=== PATIENT | male | born 1990 | race Two or more races ===

== ENCOUNTER 2017-02-07 15:22 | Inpatient (IN) | payer BC, OTHER ==
[~2017-02-07] VITALS: Ht 172.7 cm; Wt 96.5 kg
[2017-02-07] MEDS ORDERED: SODIUM CHLORIDE 0.9% 1,000 ML IV ONE (16:07)
[2017-02-07 16:35] LABS: Mean Platelet Volume 8.7 fL (6.9-10.8)
[2017-02-07 16:40] LABS: Mean Corpuscular Hemoglobin 32.5 pg (28.0-32.0); Mean Corpuscular Volume 84.7 fL (80.0-100.0); Platelet Count (auto) 250 10^3/uL (140-450)
[2017-02-07 16:49] LABS: Mean Corpuscular Hgb Conc. 38.4 g/dL (32.0-36.0)
[2017-02-07 16:51] LABS: INR 1.1 (0.9-1.15); Partial Thromboplastin Time 20.9 sec (22.64-33.71)
[2017-02-07 16:56] LABS: Hemoglobin 3.1 g/dL (13.5-17.5)
[2017-02-07 16:57] LABS: Albumin 4.1 g/dL (3.4-5.0); Alkaline Phosphatase 91 U/L (45-117); Anion Gap 10 (5-15); Aspartate Aminotransferase 11 U/L (15-37); BUN/Creatinine Ratio 22.1; Bilirubin, Total 0.5 mg/dL (0.2-1.0); Blood Urea Nitrogen 19 mg/dL (7-18); Calcium 8.5 mg/dL (8.5-10.1); Carbon Dioxide 23 mmol/L (21-32); Chloride 103 mmol/L (98-107); GFR African American 138 mL/min; GFR Non-African American 114 mL/min; Glucose 91 mg/dL (74-106); Potassium 3.8 mmol/L (3.5-5.1); Sodium 136 mmol/L (136-145); Total Protein 7.2 g/dL (6.4-8.2)
[2017-02-07 17:03] LABS: White Blood Cell 1.5 10^3/uL (4.4-10.8)
[2017-02-07 17:04] LABS: Metamyelocytes % 0; Myelocytes % 0; Promyelocytes % 0
[2017-02-07] MEDS ORDERED: IOHEXOL 300 MG/ML 100ML BOTTLE IJ ONE (17:23)
[2017-02-07 18:44] LABS: Reticulocyte Count 0.2 % (0.5-1.5)
[2017-02-07 18:45] LABS: Platelet Estimate Adequate; Reactive Lymphocytes 2
[2017-02-07 18:46] LABS: Hypochromia Moderate; Microcytosis Moderate
[2017-02-07] MEDS ORDERED: HYDROcodone-ACET 5/325MG TAB PO PRN (19:00)
[2017-02-07] MEDS ORDERED: MORPHINE SULF INJ 2 MG/ML SYRINGE 1ML IV PRN ×2 (19:00)
[2017-02-07] MEDS ORDERED: TEMAZEPAM 15 MG CAP PO PRN (19:00)
[2017-02-07] MEDS ORDERED: ONDANSETRON HCL 4 MG/2 ML VIAL IV PRN (19:00)
[2017-02-07] MEDS ORDERED: NITROGLYCERIN 0.4 MG SL TAB SL PRN (19:00)
[2017-02-07] MEDS ORDERED: DOCUSATE SOD 100 MG CAP PO PRN (19:00)
[2017-02-07] MEDS ORDERED: ACETAMINOPHEN 325 MG TAB PO PRN (19:00)
[2017-02-07] MEDS: SODIUM CHLORIDE 0.9% 1,000 ML IV SCH (19:13)
[2017-02-07 19:41] LABS: Wright Stain Ready for Review
[2017-02-07 21:00] VITALS: BP 118/47
[2017-02-07] MEDS: FAMOTIDINE 20 MG TAB PO SCH (21:27)
[2017-02-07 21:37] VITALS: BP 118/47
[2017-02-07 21:55] VITALS: BP 113/43
[2017-02-07 22:10] VITALS: BP 112/52
[2017-02-07 22:40] VITALS: BP 118/47
[2017-02-08] VITALS (10 sets, daily range): BP systolic 102–122; BP diastolic 51–65
[2017-02-08 02:22] LABS: Urine RBC None Seen /hpf (0 - 3)
[2017-02-08 02:30] LABS: Urine Bilirubin Negative (Negative); Urine Blood Negative /uL (Negative); Urine Color Yellow (Yellow); Urine Glucose Normal (Normal); Urine Ketone Negative (Negative); Urine Nitrite Negative (Negative); Urine pH 6.5 (5.0-8.0)
[2017-02-08 06:58] LABS: Hematocrit 12.3 % (41.0-53.0); Mean Corpuscular Hemoglobin 30.8 pg (28.0-32.0); Mean Corpuscular Hgb Conc. 36.2 g/dL (32.0-36.0); Mean Corpuscular Volume 85.1 fL (80.0-100.0); Platelet Count (auto) 241 10^3/uL (140-450); Red Cell Distribution Width 13.9 % (11.8-14.3)
[2017-02-08 07:12] LABS: Albumin 3.7 g/dL (3.4-5.0); BUN/Creatinine Ratio 20.2; Calcium 8.2 mg/dL (8.5-10.1); Potassium 3.9 mmol/L (3.5-5.1)
[2017-02-08 07:15] LABS: Bilirubin, Total 0.6 mg/dL (0.2-1.0); Total Protein 6.6 g/dL (6.4-8.2)
[2017-02-08 07:21] LABS: Hemoglobin 4.4 g/dL (13.5-17.5); White Blood Cell 1.8 10^3/uL (4.4-10.8)
[2017-02-08 07:22] LABS: Metamyelocytes % 0; Myelocytes % 0; Promyelocytes % 0; Reactive Lymphocytes 0
[2017-02-08 07:46] LABS: Ovalocytes FEW; Platelet Estimate Adequate
[2017-02-08] MEDS ORDERED: HYDROmorphone HCL 2 MG/ML VL IV ONE (08:00)
[2017-02-08 08:37] LABS: Albumin 3.8 g/dL (3.4-5.0); Bilirubin, Direct 0.1 mg/dL (0-0.2); Bilirubin, Total 0.6 mg/dL (0.2-1.0); Total Protein 6.6 g/dL (6.4-8.2)
[2017-02-08] MEDS: FAMOTIDINE 20 MG TAB PO SCH ×2 (09:44→20:44)
[2017-02-08] MEDS: FOLIC ACID 1 MG TAB PO SCH (09:44)
[2017-02-08] MEDS: MULTIPLE VITAMIN TAB PO SCH (09:44)
[2017-02-08] MEDS: methylPREDNISolone SOD SUCC 125 MG/2 ML VL IV SCH ×2 (09:45→20:44)
[2017-02-08] MEDS: SODIUM CHLORIDE 0.9% 1,000 ML IV SCH (16:21)
[2017-02-09] VITALS (11 sets, daily range): BP systolic 104–150; BP diastolic 51–83
[2017-02-09] MEDS: SODIUM CHLORIDE 0.9% 1,000 ML IV SCH ×2 (05:34→20:59)
[2017-02-09] MEDS: methylPREDNISolone SOD SUCC 125 MG/2 ML VL IV SCH ×3 (05:34→22:22)
[2017-02-09 06:18] LABS: Basophils # (auto) 0 uL; Basophils % (auto) 0.1 % (0.0-2.0); Eosinophils # (auto) 0 uL; Lymphocytes # (auto) 0.6 uL; Monocytes # (auto) 0 uL
[2017-02-09 06:26] LABS: Eosinophils % (auto) 0.1 % (0.0-7.0); Hematocrit 12.5 % (41.0-53.0); Lymphocytes % (auto) 44.3 % (10.0-50.0); Mean Corpuscular Hemoglobin 30.8 pg (28.0-32.0); Mean Corpuscular Hgb Conc. 35.8 g/dL (32.0-36.0); Mean Platelet Volume 9.4 fL (6.9-10.8); Monocytes % (auto) 2.5 % (0.0-12.0); Neutrophils # (auto) 0.7 uL; Nucleated Red Blood Cells % 0.1 %; Platelet Count (auto) 220 10^3/uL (140-450); Red Cell Distribution Width 14.1 % (11.8-14.3)
[2017-02-09 06:50] LABS: Albumin 3.7 g/dL (3.4-5.0); Calcium 8.5 mg/dL (8.5-10.1)
[2017-02-09 06:53] LABS: Bilirubin, Total 0.3 mg/dL (0.2-1.0); Total Protein 6.9 g/dL (6.4-8.2)
[2017-02-09 06:57] LABS: White Blood Cell 1.3 10^3/uL (4.4-10.8)
[2017-02-09 06:58] LABS: Hemoglobin 4.5 g/dL (13.5-17.5)
[2017-02-09] MEDS: FAMOTIDINE 20 MG TAB PO SCH ×2 (09:33→22:22)
[2017-02-09] MEDS: FOLIC ACID 1 MG TAB PO SCH (09:33)
[2017-02-09] MEDS: MULTIPLE VITAMIN TAB PO SCH (09:33)
[2017-02-10 05:00] VITALS: BP 117/60
[2017-02-10 05:47] LABS: Basophils # (auto) 0 uL; Eosinophils # (auto) 0 uL; Lymphocytes # (auto) 0.5 uL; Mean Corpuscular Volume 85.7 fL (80.0-100.0); Mean Platelet Volume 9.3 fL (6.9-10.8); Monocytes # (auto) 0 uL
[2017-02-10 05:51] LABS: Hematocrit 13.5 % (41.0-53.0); Lymphocytes % (auto) 30.3 % (10.0-50.0); Mean Corpuscular Hemoglobin 30.9 pg (28.0-32.0); Mean Corpuscular Hgb Conc. 36.1 g/dL (32.0-36.0); Neutrophils # (auto) 1.1 uL; Neutrophils % (auto) 67.7 % (37.0-80.0); Nucleated Red Blood Cells % 0.2 %; Platelet Count (auto) 182 10^3/uL (140-450); Red Cell Distribution Width 13.9 % (11.8-14.3)
[2017-02-10] MEDS: methylPREDNISolone SOD SUCC 125 MG/2 ML VL IV SCH ×3 (05:56→21:34)
[2017-02-10 06:00] LABS: White Blood Cell 1.7 10^3/uL (4.4-10.8)
[2017-02-10 06:01] LABS: Hemoglobin 4.9 g/dL (13.5-17.5)
[2017-02-10 09:00] VITALS: BP 112/51
[2017-02-10] MEDS: FOLIC ACID 1 MG TAB PO SCH (09:40)
[2017-02-10] MEDS: MULTIPLE VITAMIN TAB PO SCH (09:40)
[2017-02-10] MEDS: FAMOTIDINE 20 MG TAB PO SCH ×2 (09:41→21:34)
[2017-02-10 13:00] VITALS: BP 117/58
[2017-02-10] MEDS: SODIUM CHLORIDE 0.9% 1,000 ML IV SCH (16:02)
[2017-02-10 17:00] VITALS: BP 114/51
[2017-02-10 22:00] VITALS: BP 119/52
[2017-02-11 05:00] VITALS: BP 116/58
[2017-02-11] MEDS: methylPREDNISolone SOD SUCC 125 MG/2 ML VL IV SCH ×3 (05:30→21:23)
[2017-02-11] MEDS: SODIUM CHLORIDE 0.9% 1,000 ML IV SCH ×2 (05:31→23:12)
[2017-02-11 09:00] VITALS: BP 120/58
[2017-02-11] MEDS: FOLIC ACID 1 MG TAB PO SCH (09:51)
[2017-02-11] MEDS: MULTIPLE VITAMIN TAB PO SCH (09:51)
[2017-02-11] MEDS: FAMOTIDINE 20 MG TAB PO SCH ×2 (09:51→21:23)
[2017-02-11 13:00] VITALS: BP 117/57
[2017-02-11 17:00] VITALS: BP 109/67
[2017-02-11 19:29] LABS: Basophils # (auto) 0 uL; Eosinophils # (auto) 0 uL; Lymphocytes # (auto) 0.5 uL; Monocytes # (auto) 0 uL
[2017-02-11 19:31] LABS: Basophils % (auto) 0.1 % (0.0-2.0); Hematocrit 14.4 % (41.0-53.0); Lymphocytes % (auto) 29.1 % (10.0-50.0); Mean Corpuscular Hemoglobin 30.4 pg (28.0-32.0); Mean Corpuscular Hgb Conc. 35.4 g/dL (32.0-36.0); Mean Platelet Volume 9.7 fL (6.9-10.8); Monocytes % (auto) 0.6 % (0.0-12.0); Neutrophils # (auto) 1.1 uL; Neutrophils % (auto) 70.2 % (37.0-80.0); Platelet Count (auto) 184 10^3/uL (140-450); Red Cell Distribution Width 13.6 % (11.8-14.3)
[2017-02-11 19:37] LABS: Hemoglobin 5.1 g/dL (13.5-17.5); White Blood Cell 1.6 10^3/uL (4.4-10.8)
[2017-02-11 20:50] LABS: Anisocytosis Slight; Ovalocytes FEW; Platelet Estimate Adequate
[2017-02-11 22:00] VITALS: BP 115/55
[2017-02-12] VITALS (7 sets, daily range): BP systolic 111–127; BP diastolic 51–65
[2017-02-12] MEDS: methylPREDNISolone SOD SUCC 125 MG/2 ML VL IV SCH ×3 (05:22→21:45)
[2017-02-12 05:48] LABS: Basophils # (auto) 0 uL; Eosinophils # (auto) 0 uL; Lymphocytes # (auto) 0.6 uL
[2017-02-12 05:51] LABS: Basophils % (auto) 0.1 % (0.0-2.0); Hematocrit 14.5 % (41.0-53.0); Lymphocytes % (auto) 35.5 % (10.0-50.0); Mean Corpuscular Hemoglobin 30.3 pg (28.0-32.0); Mean Corpuscular Hgb Conc. 35.6 g/dL (32.0-36.0); Mean Corpuscular Volume 85.2 fL (80.0-100.0); Mean Platelet Volume 9.8 fL (6.9-10.8); Monocytes # (auto) 0 uL; Monocytes % (auto) 2.4 % (0.0-12.0); Neutrophils # (auto) 1.1 uL; Nucleated Red Blood Cells % 0.3 %; Platelet Count (auto) 179 10^3/uL (140-450); Red Cell Distribution Width 13.5 % (11.8-14.3)
[2017-02-12 06:01] LABS: White Blood Cell 1.8 10^3/uL (4.4-10.8)
[2017-02-12 06:02] LABS: Hemoglobin 5.2 g/dL (13.5-17.5)
[2017-02-12] MEDS: MULTIPLE VITAMIN TAB PO SCH (10:23)
[2017-02-12] MEDS: FOLIC ACID 1 MG TAB PO SCH (10:23)
[2017-02-12] MEDS: FAMOTIDINE 20 MG TAB PO SCH ×2 (10:23→21:46)
[2017-02-12] MEDS: SODIUM CHLORIDE 0.9% 1,000 ML IV SCH (15:54)
[2017-02-13] VITALS (16 sets, daily range): BP systolic 99–130; BP diastolic 43–63
[2017-02-13] MEDS: methylPREDNISolone SOD SUCC 125 MG/2 ML VL IV SCH ×3 (05:35→21:39)
[2017-02-13 05:36] LABS: Basophils # (auto) 0 uL; Basophils % (auto) 0.1 % (0.0-2.0); Eosinophils # (auto) 0 uL; Lymphocytes # (auto) 0.4 uL; Neutrophils % (auto) 69.5 % (37.0-80.0)
[2017-02-13 05:39] LABS: Hematocrit 15.9 % (41.0-53.0); Lymphocytes % (auto) 27.8 % (10.0-50.0); Mean Corpuscular Hemoglobin 30.2 pg (28.0-32.0); Mean Corpuscular Hgb Conc. 35.5 g/dL (32.0-36.0); Mean Corpuscular Volume 85.1 fL (80.0-100.0); Mean Platelet Volume 9.8 fL (6.9-10.8); Monocytes # (auto) 0 uL; Monocytes % (auto) 2.6 % (0.0-12.0); Neutrophils # (auto) 0.9 uL; Platelet Count (auto) 154 10^3/uL (140-450)
[2017-02-13 05:44] LABS: Hemoglobin 5.6 g/dL (13.5-17.5); White Blood Cell 1.4 10^3/uL (4.4-10.8)
[2017-02-13] MEDS: SODIUM CHLORIDE 0.9% 1,000 ML IV SCH (07:39)
[2017-02-13] MEDS: FOLIC ACID 1 MG TAB PO SCH (09:33)
[2017-02-13] MEDS: FAMOTIDINE 20 MG TAB PO SCH ×2 (09:34→21:39)
[2017-02-13] MEDS: MULTIPLE VITAMIN TAB PO SCH (09:35)
[2017-02-14] MEDS: SODIUM CHLORIDE 0.9% 1,000 ML IV SCH ×2 (00:47→17:01)
[2017-02-14 04:46] VITALS: BP 108/58
[2017-02-14] MEDS: methylPREDNISolone SOD SUCC 125 MG/2 ML VL IV SCH ×3 (05:37→21:45)
[2017-02-14 06:07] LABS: Basophils # (auto) 0 uL; Eosinophils # (auto) 0 uL; Hematocrit 18.7 % (41.0-53.0); Lymphocytes # (auto) 0.6 uL; Monocytes # (auto) 0.1 uL; Neutrophils # (auto) 1.3 uL; Neutrophils % (auto) 65.8 % (37.0-80.0); Platelet Count (auto) 158 10^3/uL (140-450)
[2017-02-14 06:10] LABS: Basophils % (auto) 0.2 % (0.0-2.0); Lymphocytes % (auto) 30.8 % (10.0-50.0); Mean Corpuscular Hemoglobin 30.3 pg (28.0-32.0); Mean Corpuscular Hgb Conc. 35.9 g/dL (32.0-36.0); Mean Corpuscular Volume 84.3 fL (80.0-100.0); Mean Platelet Volume 10.1 fL (6.9-10.8); Monocytes % (auto) 3.2 % (0.0-12.0); Nucleated Red Blood Cells % 0.4 %; Red Cell Distribution Width 13.1 % (11.8-14.3)
[2017-02-14 06:15] LABS: White Blood Cell 1.9 10^3/uL (4.4-10.8)
[2017-02-14 06:16] LABS: Hemoglobin 6.7 g/dL (13.5-17.5)
[2017-02-14 09:00] VITALS: BP 119/65
[2017-02-14] MEDS: FAMOTIDINE 20 MG TAB PO SCH ×2 (09:13→21:45)
[2017-02-14] MEDS: MULTIPLE VITAMIN TAB PO SCH (09:13)
[2017-02-14] MEDS: FOLIC ACID 1 MG TAB PO SCH (09:13)
[2017-02-14 13:00] VITALS: BP 122/60
[2017-02-14 17:00] VITALS: BP 128/74
[2017-02-14 22:00] VITALS: BP 112/62
[2017-02-15 05:48] LABS: Basophils # (auto) 0 uL; Eosinophils # (auto) 0 uL; Hematocrit 19.7 % (41.0-53.0); Mean Platelet Volume 9.8 fL (6.9-10.8); Monocytes # (auto) 0.1 uL
[2017-02-15] MEDS: methylPREDNISolone SOD SUCC 125 MG/2 ML VL IV SCH ×3 (05:48→23:03)
[2017-02-15 05:51] LABS: Basophils % (auto) 0.2 % (0.0-2.0); Lymphocytes # (auto) 0.7 uL; Mean Corpuscular Hgb Conc. 35.3 g/dL (32.0-36.0); Mean Corpuscular Volume 84.9 fL (80.0-100.0); Monocytes % (auto) 4.1 % (0.0-12.0); Neutrophils # (auto) 1.2 uL; Neutrophils % (auto) 62.7 % (37.0-80.0); Nucleated Red Blood Cells % 0.6 %; Platelet Count (auto) 173 10^3/uL (140-450); Red Cell Distribution Width 13.2 % (11.8-14.3)
[2017-02-15 06:00] VITALS: BP 110/53
[2017-02-15] MEDS: SODIUM CHLORIDE 0.9% 1,000 ML IV SCH (07:54)
[2017-02-15 09:00] VITALS: BP 116/59
[2017-02-15] MEDS: MULTIPLE VITAMIN TAB PO SCH (10:47)
[2017-02-15] MEDS: FOLIC ACID 1 MG TAB PO SCH (10:47)
[2017-02-15] MEDS: FAMOTIDINE 20 MG TAB PO SCH ×2 (10:47→23:03)
[2017-02-15 11:27] LABS: Burr Cells FEW; Ovalocytes FEW; Platelet Estimate Adequate; Polychromasia Slight
[2017-02-15 13:06] VITALS: BP 117/71
[2017-02-15 17:00] VITALS: BP 115/59
[2017-02-15 22:00] VITALS: BP 119/61
[2017-02-16] MEDS: SODIUM CHLORIDE 0.9% 1,000 ML IV SCH ×2 (02:47→19:27)
[2017-02-16 05:00] VITALS: BP 105/48
[2017-02-16 09:00] VITALS: BP 120/53
[2017-02-16] MEDS: FAMOTIDINE 20 MG TAB PO SCH ×2 (09:56→22:43)
[2017-02-16] MEDS: MULTIPLE VITAMIN TAB PO SCH (09:56)
[2017-02-16] MEDS: methylPREDNISolone SOD SUCC 125 MG/2 ML VL IV SCH ×2 (09:56→22:43)
[2017-02-16] MEDS: FOLIC ACID 1 MG TAB PO SCH (09:56)
[2017-02-16 13:00] VITALS: BP 111/59
[2017-02-16 17:10] VITALS: BP 94/57
[2017-02-16 22:00] VITALS: BP 102/56
[2017-02-17 05:00] VITALS: BP 99/40
[2017-02-17 08:25] LABS: Eosinophils # (auto) 0 uL; Monocytes # (auto) 0.1 uL; Neutrophils # (auto) 1.7 uL; Nucleated Red Blood Cells % 2.8 %; White Blood Cell 2.7 10^3/uL (4.4-10.8)
[2017-02-17 08:26] LABS: Basophils # (auto) 0.1 uL; Basophils % (auto) 3.1 % (0.0-2.0); Eosinophils % (auto) 0.1 % (0.0-7.0); Hematocrit 23.2 % (41.0-53.0); Lymphocytes # (auto) 0.8 uL; Lymphocytes % (auto) 29.4 % (10.0-50.0); Mean Corpuscular Hgb Conc. 34.6 g/dL (32.0-36.0); Mean Corpuscular Volume 86.7 fL (80.0-100.0); Mean Platelet Volume 8.9 fL (6.9-10.8); Monocytes % (auto) 3.3 % (0.0-12.0); Neutrophils % (auto) 64.1 % (37.0-80.0); Platelet Count (auto) 180 10^3/uL (140-450); Red Cell Distribution Width 13.2 % (11.8-14.3)
[2017-02-17 08:43] LABS: BUN/Creatinine Ratio 26.5; Bilirubin, Total 0.5 mg/dL (0.2-1.0); Potassium 4.2 mmol/L (3.5-5.1)
[2017-02-17 09:00] VITALS: BP 115/57
[2017-02-17] MEDS: methylPREDNISolone SOD SUCC 125 MG/2 ML VL IV SCH (09:27)
[2017-02-17] MEDS: FAMOTIDINE 20 MG TAB PO SCH (09:28)
[2017-02-17] MEDS: FOLIC ACID 1 MG TAB PO SCH (09:28)
[2017-02-17] MEDS: MULTIPLE VITAMIN TAB PO SCH (09:28)
[2017-02-17] MEDS: SODIUM CHLORIDE 0.9% 1,000 ML IV SCH (12:02)
[2017-02-17] MEDS ORDERED: MORPHINE SULFATE 4 MG/ML SYRG IV PRN (12:15)
[2017-02-17 13:00] VITALS: BP 117/54
[2017-02-17 16:33] VITALS: BP 117/54
[2017-02-17 16:34] VITALS: BP 119/61
== END 2017-02-17 21:20 | disposition short-term general hospital (02) | DRG 835 ==
LOC: ER 15:30 → TELE 15:31 → TELE-WESTW 21:05 → WEST WING 02-10 09:13
PROVIDERS: ADMIT Internal Medicine; ATTEND Internal Medicine Pulmonary Disease
PROC: 30233N1 Transfusion of Nonautologous Red Blood Cells into Peripheral Vein, Percutaneous Approach (ICD-10-PCS; principal; 2017-02-07)
PROC: 07DR3ZX Extraction of Iliac Bone Marrow, Percutaneous Approach, Diagnostic (ICD-10-PCS; 2017-02-07)
DX: C91.00 Acute lymphoblastic leukemia not having achieved remission (principal); C85.95 Non-Hodgkin lymphoma, unspecified, lymph nodes of inguinal region and lower limb; D59.1 Other autoimmune hemolytic anemias; E61.1 Iron deficiency; R59.0 Localized enlarged lymph nodes; Z90.89 Acquired absence of other organs
CPT/HCPCS: 36415; 71010; 74177; 80053; 80076; 81001; 82270; 82607; 82728; 82784; 82962; 83010; 83540; 83550; 83615; 84484; 84550; 85007; 85025; 85027; 85045; 85610; 85730; 86334; 86703; 86850; 86880; 86900; 86901; 86920; 88342; 88360; 93005; 96361; 96374; 96375; J2405

== ENCOUNTER 2017-06-11 00:10 | Emergency (ER) | payer BC ==
[~2017-06-11] VITALS: Ht 172.7 cm; Wt 88.5 kg
[2017-06-11 00:24] VITALS: BP 121/80
== END 2017-06-11 03:35 | disposition left against medical advice (07) ==
LOC: ER 00:11
DX: M79.601 Pain in right arm (principal); Z53.21 Procedure and treatment not carried out due to patient leaving prior to being seen by health care provider

== ENCOUNTER → 2017-06-12 | Emergency (ER) | payer BC | END | disposition left against medical advice (07) | LOC: ER 01:19 | DX: Z48.01 Encounter for change or removal of surgical wound dressing (principal); Z53.21 Procedure and treatment not carried out due to patient leaving prior to being seen by health care provider ==